=== PATIENT | female | born 1985 | race Caucasian/White ===

== ENCOUNTER 2021-07-29 18:28 | Observation (INO) | payer SELFPAY ==
[~2021-07-29] VITALS: Ht 162.6 cm; Wt 60.0 kg
--- NOTE | 2021-07-29 18:28 | NUR ---
PATIENT TO ROOM 13 BEDSIDE TRIAGE COMPLETED
[2021-07-29 18:59] LABS: HEMATOCRIT 44.3 % (37.0-47.0); IMMATURE GRANULOCYTES 0.4 % (0.0-5.0); MEAN CELL VOLUME 86.9 fL CALC (80.0-100.0); MEAN CORPUSCULAR HGB 27.5 pG CALC (26.0-32.0); MEAN CORPUSCULAR HGB CONC 31.6 g/dL CAL (32.0-36.0); PLATELET COUNT 445 thou/uL (130-400); RED CELL DISTRI WIDTH 14.1 % (11.5-15.5)
[2021-07-29 19:01] LABS: URINE BILIRUBIN - DIPSTICK NEGATIVE (NEGATIVE); URINE BLOOD DIPSTICK SMALL (NEGATIVE); URINE GLUCOSE - DIPSTICK NEGATIVE (NEGATIVE); URINE KETONE NEGATIVE (NEGATIVE); URINE LEUK ESTERASE TRACE (NEGATIVE); URINE PROTEIN - DIPSTICK 30 mg/dL (NEG-TRACE); URINE SPECIFIC GRAVITY 1.015
[2021-07-29 19:07] LABS: MANUAL DIFFERENTIAL YES
[2021-07-29 19:10] LABS: URINE NITRITE - DIPSTICK POSITIVE (Negative)
[2021-07-29 19:11] LABS: URINE COLOR DK. YELLOW
[2021-07-29 19:18] LABS: ALBUMIN 3.9 g/dL (3.2-5.0); ALKALINE PHOSPHATASE 158 u/l (38-126); ANION GAP 13 (6-22 (CALC)); BILIRUBIN, TOTAL 1.1 mg/dL (0.0-1.4); BUN 16 mg/dL (7-17); BUN/CREATININE RATIO 25 (12-20 (CALC)); CARBON DIOXIDE 29 mmol/l (22-30); CHLORIDE 94 mmol/l (95-108); CREATININE 0.6 mg/dL (0.5-1.0); ETHYL ALCOHOL 0 mg/dl (0-30); GFR > 60 ML/MIN (>=60 (CALC)); GFR FOR AFR.AMER. > 60 ML/MIN (>=60 (CALC)); LIPASE < 10 u/l (23-300); SGOT/AST 67 u/l (14-36); SODIUM 131 mmol/l (137-146); TOTAL PROTEIN 8.4 g/dL (6.3-8.2); URINE SQUAMOUS EPITHELIAL CELL MODERATE EPI/hpf (0-FEW)
[2021-07-29 19:19] LABS: URINE BACTERIA MODERATE hpf; URINE TRICHOMONAS FEW hpf
[2021-07-29 19:26] LABS: BAND 0 % (0-8)
[2021-07-29 19:30] LABS: POTASSIUM 5.3 mmol/l (3.5-5.1)
--- NOTE | 2021-07-29 19:30 | NUR ---
RESTING QUIETLY. ABD PAIN PERSISTS.
--- NOTE | 2021-07-29 20:20 | NUR ---
WARM COMPRESS RO RAC IV SITE. IV D/C'D.
--- NOTE | 2021-07-29 21:00 | NUR ---
RESTING QUIETLY. FEELING BETTER.
--- NOTE | 2021-07-29 22:00 | NUR ---
AWAITING TO GO TO ROOM. RN NOT AVAILABLE FOR REPORT.
--- NOTE | 2021-07-29 22:50 | NUR ---
Admission Note Report Given to: AV POON Transported by: Wheelchair X Stretcher Transported with: X Nurse Transporter X Patent IV O2 Grout Worker Location: ICU X [facility]
[2021-07-29 22:54] VITALS: BP 129/86
[2021-07-30] VITALS (9 sets, daily range): BP systolic 120–171; BP diastolic 81–100
--- NOTE | 2021-07-30 02:03 | NUR ---
LATE ENTRY FOR 07/29 @ 2255. PATIENT RECEIVED IN ROOM 278 VIA STRETCHER. AWAKE, ALERT AND ORIENTED, VSS. ORIENTED TO ROOM, INSTRUCTED ON USE OF BED CONTROLS AND CALL LIGHT. C/O ABDOMINAL PAIN TO EARLY FOR MEDICATION, PATIENT REPOSITIONED FOR COMFORT. PHYSICAL ASSESSMENT AND ADMISSION HISTORY COMPLETE, NO DISTRESS NOTED AT THIS TIME, CALL LIGHT WITHIN REACH.
--- NOTE | 2021-07-30 08:00 | NUR ---
PT AWAKE, ALERT AND ORIENTED. PT C/O OF PAIN IN HER RU ABDOMEN. WILL MEDICATE PT FOR PAIN. VS AND ASSESSMENT COMPLETE. LUNGS CLEAR, RESPIRATIONS EVEN AND UNLABORED. ABDOMEN TENDER X4 QUADS. IV INTACT, FLUSHED AND PATENT. SAFETY MEASURES IN PLACE. CALL LIGHT WITHIN PATIENTS REACH. WILL MONITOR PT CLOSELY
--- NOTE | 2021-07-30 09:32 | NUR ---
PT TRANSPORTED TO SURGERY VIA STRETCHER ACCOMPANIED BY OR NURSE. PT STABLE
[2021-07-30] MEDS ORDERED: PERCOCET 5/325M1 TAB PO (10:03)
[2021-07-30] MEDS ORDERED: LORTAB 5/3255 MG PO (11:16)
--- NOTE | 2021-07-30 12:04 | NUR ---
PT RETURNED FROM SURGERY VIA STRETCHER ACCOMPAINED BY ER NURSE. PT STABE AND ALERT. PT TRANSFERRED SELF TO BED AND TOLERATED WELL. VS AND ASSESSMENT COMPLETE. INCISION SITES INTACT CLEAN AND DRY. PT DENIES ANY PAIN OR DISCOMFORT AT THIS TIME. WILL MONITOR PATIENT CLOSELY
--- NOTE | 2021-07-30 12:25 | NUR ---
PT SLEEPING AND RESTING COMFORTABLY. PT DENIES PAIN OR DISCOMFORT. WILL CONTINUE TO MONITOR CLOSELY
--- NOTE | 2021-07-30 13:05 | NUR ---
PT SLEEPING. NO SIGNS OF PAIN OR DISTRESS AT THIS TIME. WILL CONTINUE TO MONITOR
--- NOTE | 2021-07-30 14:00 | NUR ---
PT SLEEPING AND RESTING COMFORTABLYY. IV INTACT WITH FLUIDS INFUSING. NO SIGNS OF INFECTION OR PAIN. SAFETY PRECAUTIONS IN PLACE. CALL LIGHT WITHIN PATIENTS REACH. WILL MONITOR CLOSELY
--- NOTE | 2021-07-30 19:23 | NUR ---
KG RECEIVED FROM AV MUNIZ.
--- NOTE | 2021-07-30 19:25 | NUR ---
PATIENT RESTING QUIETLY IN BED. STATUS POST OP LAP REBEKAH. 4 INCISIONS TO ABDOMEN C/D/I WITH DERMABOND. NO DRAINAGE NOTED. PATIENT COMPLAINS OF PAIN REPOSITIONED FOR COMFORT. CALL LIGHT WITHIN REACH.
[2021-07-30 19:34] LABS: MEAN CELL VOLUME 87.7 fL CALC (80.0-100.0); MEAN CORPUSCULAR HGB 27.4 pG CALC (26.0-32.0); MEAN CORPUSCULAR HGB CONC 31.2 g/dL CAL (32.0-36.0); RED BLOOD COUNT 3.91 mill/uL (4.20-5.60); RED CELL DISTRI WIDTH 13.6 % (11.5-15.5)
[2021-07-30 19:35] LABS: HEMATOCRIT 34.3 % (37.0-47.0); HEMOGLOBIN 10.7 g/dl (12.0-16.0)
[2021-07-30 19:49] LABS: ALBUMIN 2.5 g/dL (3.2-5.0); ALKALINE PHOSPHATASE 151 u/l (38-126); ANION GAP 10 (6-22 (CALC)); BILIRUBIN, TOTAL 1.5 mg/dL (0.0-1.4); BUN 10 mg/dL (7-17); BUN/CREATININE RATIO 20 (12-20 (CALC)); CARBON DIOXIDE 22 mmol/l (22-30); CHLORIDE 104 mmol/l (95-108); CREATININE 0.5 mg/dL (0.5-1.0); GFR > 60 ML/MIN (>=60 (CALC)); GFR FOR AFR.AMER. > 60 ML/MIN (>=60 (CALC)); POTASSIUM 3.8 mmol/l (3.5-5.1); SGOT/AST 71 u/l (14-36); SODIUM 132 mmol/l (137-146); TOTAL PROTEIN 5.8 g/dL (6.3-8.2)
[2021-07-31 00:07] VITALS: BP 112/66
[2021-07-31 00:50] VITALS: BP 128/78
[2021-07-31 04:00] VITALS: BP 115/78
--- NOTE | 2021-07-31 05:40 | NUR ---
ASSISTED PATIENT OOB TO AMBULATE IN THE HALLWAY. AMBULATED TO ICU HALLWAY, TOLERATED FAIRLY. EDUCATED PATIENT OF BENEFITS OF AMBULATING AFTER SURGERY, INSTRUCTED TO GET OUT OF BED TO CHAIR FOR BREAKFAST AND AMBULATED AFTERWARD. PATIENT VERBALIZES UNDERSTANDING. ASSISTED TO RESTROOM AND BACK TO BED. IV ANTIBIOTIC AND IV TORADOL ADMINISTERED. PATIENT COMFORTABLE IN BED. DENIES ANY CONCERN, CALL LIGHT WITHIN REACH.
[2021-07-31 06:18] LABS: HEMATOCRIT 31.6 % (37.0-47.0); HEMOGLOBIN 9.9 g/dl (12.0-16.0); IMMATURE GRANULOCYTES 0.4 % (0.0-5.0); MEAN CELL VOLUME 87.3 fL CALC (80.0-100.0); MEAN CORPUSCULAR HGB 27.3 pG CALC (26.0-32.0); MEAN CORPUSCULAR HGB CONC 31.3 g/dL CAL (32.0-36.0); NEUT# 11.55 thou/uL (2.00-7.15); RED BLOOD COUNT 3.62 mill/uL (4.20-5.60); RED CELL DISTRI WIDTH 13.6 % (11.5-15.5)
[2021-07-31 06:19] LABS: ALBUMIN 2.4 g/dL (3.2-5.0); ALKALINE PHOSPHATASE 146 u/l (38-126); ANION GAP 9 (6-22 (CALC)); BUN 7 mg/dL (7-17); BUN/CREATININE RATIO 12 (12-20 (CALC)); CARBON DIOXIDE 24 mmol/l (22-30); CHLORIDE 103 mmol/l (95-108); CREATININE 0.5 mg/dL (0.5-1.0); GFR > 60 ML/MIN (>=60 (CALC)); GFR FOR AFR.AMER. > 60 ML/MIN (>=60 (CALC)); POTASSIUM 3.7 mmol/l (3.5-5.1); SGOT/AST 53 u/l (14-36); SODIUM 133 mmol/l (137-146); TOTAL PROTEIN 5.5 g/dL (6.3-8.2)
[2021-07-31 07:45] VITALS: BP 119/81
--- NOTE | 2021-07-31 07:54 | NUR ---
PT MEDICATED ORDERS PROVIDE FOR PAIN 7/10 ON PAIN SCALE. INCISIONS X4 CDI. PT C/O BLOATING, DISCUSSED MOVING TO PASS GAS AND HELP WITH THE BLOATING, VERBALIZED UNDERSTANDING. SCD'S REMOVED FOR EASE OF MOVEMENT FOR PT.
--- NOTE | 2021-07-31 09:30 | NUR ---
RECEIVED CALL FROM DR. COLEMAN STATING THAT HE PLACED A HOLD ON DISCHARGE, PLACED NOON LAB ORDERS AND FOR ME TO ADVISE THE PT THAT HE WILL KEEP HER ANOTHER NIGHT DUE TO ELEVATED PAIN. PT IS SLEEPING AT THIS TIME, WILL NOTIFY WHEN SHE WAKES.
--- NOTE | 2021-07-31 12:03 | NUR ---
PT MEDICATED ORDERS PROVIDE WITH ANTIBIOTIC THERAPY AND IV PAIN MEDICATION ORDERS PROVIDE. PT REPORTS HAVING BEEN AMBULATING AROUND THE ROOM, PASSING SOME GAS, BUT STILL FEELING BLOATED. ENCOURAGED WALKING, ADVISED IF SHE WANTS TO WALK THE HALLWAY, CALL WE WILL ASSIST, VERBALIZED UNDERSTANDING.
[2021-07-31 12:31] LABS: HEMATOCRIT 28.7 % (37.0-47.0); MEAN CELL VOLUME 87.5 fL CALC (80.0-100.0); MEAN CORPUSCULAR HGB 27.4 pG CALC (26.0-32.0); MEAN CORPUSCULAR HGB CONC 31.4 g/dL CAL (32.0-36.0); RED BLOOD COUNT 3.28 mill/uL (4.20-5.60); RED CELL DISTRI WIDTH 13.5 % (11.5-15.5)
[2021-07-31 12:47] LABS: ALBUMIN 2.3 g/dL (3.2-5.0); BILIRUBIN, TOTAL 0.8 mg/dL (0.0-1.4); TOTAL PROTEIN 5.3 g/dL (6.3-8.2)
--- NOTE | 2021-07-31 13:00 | NUR ---
pt boyfriend called providing appropriate password, stating that the pt had called him and stated that she wants to leave AMA and that he had advised her against it, but that she does want to be discharged now and that they are "staying at the hotel across the street so we are close in case something happens." He then asked to be transferred to pts room phone. Call was transferred to room, I went to assist making sure the phone was w/in reach, pt was not answering, her eyes were closed. I informed her that he was calling and asked if she wanted to anwer, she shook her head know. I informed her of what he was saying about her wanting to be discharged, she shook her head no. I reminded her that the physician wanted her to stay another night and confirmed that this was okay with her, she shook her head yes.
--- NOTE | 2021-07-31 13:15 | NUR ---
Boyfriend has called multiple times in 15 minutes, we notified ruffling machine operator to hold calls at this time for the pt.
--- NOTE | 2021-07-31 13:51 | NUR ---
PT MEDICATED FOR NAUSEA AND PAIN. UPON ENTERING ROOM PT IS LAYING IN BED WITH EYES CLOSE. NO EMESIS IN BAG PROVIDED.
[2021-07-31 15:17] VITALS: BP 109/71
--- NOTE | 2021-07-31 17:44 | NUR ---
PT CALLED TO REPORT THAT SHE SPILLED HER SOUP ON HERSELF AND BED. PT CLEANED, DENIES INJURY, BEDDING REPLACED. PT MEDICATED FOR PAIN AND IV ANTIBIOTIC.
[2021-07-31 18:03] LABS: HEMATOCRIT 29.8 % (37.0-47.0); HEMOGLOBIN 9.3 g/dl (12.0-16.0)
[2021-07-31 20:00] VITALS: BP 115/78
--- NOTE | 2021-07-31 20:06 | NUR ---
PHYSICAL ASSESMENT COMPLETE. PT CURRENTLY DENIES PAIN OR DISCOMFORT. SCHEDULED MEDICATIONS AND PRN MEDICATION ADMINISTERED, SEE E-MAR. PT DENIES ANY NEEDS AT THIS TIME. PLAN OF CARE REVIEWED, PT DENIES QUESTIONS, VERBALIZES UNDERSTANDING. ITEMS WITHIN REACH, BED LOCKED IN LOW POSITION W/ BEDRAILS UP X2. CALL ANDRES WITHIN REACH, AGREES TO CALL PRN.
--- NOTE | 2021-08-01 00:58 | NUR ---
PT LAYING IN BED WITH EYES CLOSED, APPEARS TO BE SLEEPING, APPEARS COMFORTABLE AND IN NO DISTRESS. RESPIRATIONS REGULAR AND UNLABORED. ITEMS REMAIN WITHIN REACH, CALL ANDRES REMAINS WITHIN REACH. BED REMAINS LOCKED AND IN LOW POSITION WITH BEDRAILS UP X2. WILL CONTINUE TO MONITOR.
--- NOTE | 2021-08-01 04:11 | NUR ---
PT RESTING IN BED, NO SIGNS OF DISTRESS NOTED, RESP EVEN AND UNLABORED. PT VOICES NO NEEDS OR COMPLAINTS AT THIS TIME. CALL LIGHT IN REACH, WILL CONTINUE TO MONITOR.
[2021-08-01 04:38] VITALS: BP 127/76
--- NOTE | 2021-08-01 07:00 | NUR ---
BEDSIDE REPORT RECEIVED, PT IN BED ASLEEP
[2021-08-01 09:15] VITALS: BP 121/79
[2021-08-01 11:23] VITALS: BP 119/76
--- NOTE | 2021-08-01 13:05 | NUR ---
Discharge instructions given. Patient verbalizes understanding of same. Discharged in stable condition via to Home with family. All belongings sent with pt.
== END 2021-08-01 13:05 | disposition home or self-care (01) | DRG 419 ==
LOC: ED 18:28 → ED-I 20:40 → ED 20:54 → MS2 20:55
PROVIDERS: Family Medicine; ADMIT Surgery; ATTEND Surgery
PROC: 0FT44ZZ Resection of Gallbladder, Percutaneous Endoscopic Approach (ICD-10-PCS; principal; 2021-07-30)
DX: K80.00 Calculus of gallbladder with acute cholecystitis without obstruction (principal); F17.210 Nicotine dependence, cigarettes, uncomplicated; R82.71 Bacteriuria; Z20.822 Contact with and (suspected) exposure to COVID-19
CPT/HCPCS: G0378; J0131; J1610; Q9967; S0164